=== PATIENT | female | born 1970 | race African-American/Black ===

== ENCOUNTER 2018-06-07 06:34 | Emergency (ER) | payer MEDICAID ==
[~2018-06-07] VITALS: Ht 160 cm; Wt 77.8 kg
[2018-06-07] MEDS ORDERED: HALOPERIDOL 5MG TABLET PO ONE ×2 (07:30→23:30)
[2018-06-07] MEDS ORDERED: FLUOXETINE HCL 20MG CAPSULE PO ONE (07:30)
[2018-06-07] MEDS ORDERED: DIPHENHYDRAMINE 25MG CAPSULE PO ONE (07:30)
[2018-06-07 07:38] LABS: BASOPHILS % 0.8 % (0.0-2.0); EOSINOPHILS % 1.3 % (0.0-5.0); HEMATOCRIT. 39.4 % (36.0-48.0); HEMOGLOBIN. 13.4 g/dL (12.0-16.0); LYMPHOCYTES % 30.5 % (20.0-50.0); MEAN CORPUSCULAR HEMOGLOBIN 26.9 pg (28.0-32.0); MEAN CORPUSCULAR VOLUME 78.9 fL (81.0-99.0); MEAN PLATELET VOLUME 9.2 fl (7.4-10.4); MONOCYTES % 9.9 % (2.0-8.0); NEUTROPHILS % 57.5 % (40.0-76.0); PLATELET 285 x1000/uL (130-400); RED BLOOD CELL COUNT 4.99 mill/uL (4.2-5.4); RED CELL DISTRIBUTION WIDTH 14.8 % (11.6-14.6)
[2018-06-07 07:43] LABS: CHLORIDE 96 mEq/L (98-107)
[2018-06-07 07:47] LABS: ETHANOL BLOOD < 10 mg/dL
[2018-06-07 09:09] LABS: HCG SCREEN NEGATIVE
[2018-06-07 09:45] LABS: *BARBITURATES SCREEN URINE NEGATIVE (NEGATIVE); *BENZODIAZEPINES SCREEN URINE NEGATIVE (NEGATIVE)
[2018-06-07 09:46] LABS: METHADONE URINE SCREEN NEGATIVE (NEGATIVE); OPIATES URINE SCREEN NEGATIVE (NEGATIVE); PHENCYCLIDINE URINE SCREEN NEGATIVE (NEGATIVE)
[2018-06-07 09:50] LABS: *AMPHETAMINES SCREEN URINE PRESUMTIVE POSITIVE (NEGATIVE); *COCAINE SCREEN URINE PRESUMTIVE POSITIVE (NEGATIVE); CANNABINOID URINE SCREEN PRESUMTIVE POSITIVE (NEGATIVE)
[2018-06-08] MEDS ORDERED: HALOPERIDOL 5MG TABLET PO SCH (11:00)
[2018-06-08] MEDS ORDERED: FLUOXETINE HCL 20MG CAPSULE PO ONE (11:00)
[2018-06-08] MEDS ORDERED: BENZTROPINE MESYLATE 1MG TABLET PO SCH (11:00)
[2018-06-08 18:51] VITALS: BP 140/79
== END 2018-06-08 20:15 ==
LOC: ER 07:11
DX: Z00.8 Encounter for other general examination (principal); R45.851 Suicidal ideations; F20.9 Schizophrenia, unspecified; F14.129 Cocaine abuse with intoxication, unspecified; F31.9 Bipolar disorder, unspecified; F15.129 Other stimulant abuse with intoxication, unspecified; J45.909 Unspecified asthma, uncomplicated; F17.200 Nicotine dependence, unspecified, uncomplicated; F12.129 Cannabis abuse with intoxication, unspecified; I10 Essential (primary) hypertension; Z88.8 Allergy status to other drugs, medicaments and biological substances
CPT/HCPCS: 36415; 80048; 80305; 80307; 80329; 84703; 85025; 99285; G0482; J1630; Z7610; Q0163